=== PATIENT | male | born 1995 | race American Indian/Alaskan Native ===

== ENCOUNTER 2016-10-17 00:44 | Emergency (ER) | payer SELFPAY ==
[2016-10-17 01:00] VITALS: BP 132/92
== END 2016-10-17 01:00 | disposition left against medical advice (07) ==
LOC: ED 00:44
DX: M25.532 Pain in left wrist (principal); X58.XXXA Exposure to other specified factors, initial encounter; Y93.67 Activity, basketball; Y92.39 Other specified sports and athletic area as the place of occurrence of the external cause; Y99.8 Other external cause status; Z53.21 Procedure and treatment not carried out due to patient leaving prior to being seen by health care provider

== ENCOUNTER 2018-09-30 12:10 | Emergency (ER) | payer SELFPAY ==
[2018-09-30 12:43] VITALS: BP 127/65
[2018-09-30] MEDS ORDERED: ZITHROMAX PO ONE (13:13)
[2018-09-30] MEDS ORDERED: ROCEPHIN IM ONE (13:13)
[2018-09-30] MEDS ORDERED: XYLOCAINE 1% MPF 5 mL INFILTRATI ONE (13:13)
--- NOTE | 2018-09-30 13:14 | Emergency Department Report ---
ED Dysuria HPI - HPI Chief Complaint: Urogenital-Male Stated Complaint: PENIS/PAIN Time Seen by Provider: 09/30/18 13:16 Duration: 3 Days Severity: Moderate Symptoms: Dysuria: Yes, Frequency: No, Suprapubic Pain: No, Flank Pain: No, Fever: No, Hematuria: No, Abdominal Pain: No, Previous UTI's: No Other History: Patient is a 23-year-old -[place] male who comes in complaining of green penile discharge. He admits to numerous unprotected sexual partners. ED Review of Systems ROS: Stated complaint: PENIS/PAIN Other details as noted in HPI Comment: All other systems reviewed and negative Constitutional: denies: chills Eyes: denies: eye pain ENT: denies: throat pain Respiratory: denies: cough Cardiovascular: denies: palpitations Endocrine: denies: flushing Gastrointestinal: denies: nausea Genitourinary: as per HPI, dysuria, discharge. denies: urgency, frequency, hematuria Musculoskeletal: denies: back pain Skin: denies: rash Neurological: denies: weakness Psychiatric: denies: anxiety Hematological/Lymphatic: denies: easy bleeding ED Past Medical Hx - Past Medical History Previous Medical History?: No - Surgical History Past Surgical History?: No - Social History Smoking Status: Current Some Day Smoker Substance Use Type: Marijuana Dysuria Exam - Exam General: Vital signs noted. No distress. Alert and acting appropriately. Exam: Yes Moist Mucous Membranes, No CVA Tenderness, No Abdominal Tenderness, No Rigidity or Guarding ED Course Vital Signs 09/30/18 12:40 Temperature 97.4 F L Pulse Rate 66 Respiratory 16 Rate Blood Pressure 127/65 O2 Sat by Pulse 100 Oximetry ED Medical Decision Making - Medical Decision Making EMPIRIC TX FOR STI UA- GC PENDING - Differential Diagnosis STD Critical care attestation.: If time is entered above; I have spent that time in minutes in the direct care of this critically ill patient, excluding procedure time. ED Disposition Clinical Impression: STD (sexually transmitted disease) Disposition: DC-01 TO HOME OR SELFCARE Is pt being admited?: No Does the pt Need Aspirin: No Condition: Stable Instructions: Safe Sex (ED) Time of Disposition: 13:15
== END 2018-09-30 15:53 | disposition home or self-care (01) ==
LOC: ED 12:10
DX: A64 Unspecified sexually transmitted disease (principal); F17.200 Nicotine dependence, unspecified, uncomplicated
CPT/HCPCS: 96372; 99282; J0696

== ENCOUNTER 2019-10-31 09:07 | Emergency (ER) | payer SELFPAY ==
[2019-10-31 09:53] LABS: Basophils % (Auto) 0.3 % (0.0-1.8); Eosinophils # (Auto) 0.1 K/mm3 (0.0-0.4); Eosinophils % (Auto) 1.9 % (0.0-4.3); Hematocrit 43.7 % (35.5-45.6); Hemoglobin 14.4 gm/dl (11.8-15.2); Lymphocytes # (Auto) 1.4 K/mm3 (1.2-5.4); Lymphocytes % (Auto) 17.4 % (13.4-35.0); Mean Corpuscular HGB Conc 33 % (32-34); Mean Corpuscular Volume 89 fl (84-94); Monocytes # (Auto) 0.5 K/mm3 (0.0-0.8); Monocytes % (Auto) 6.2 % (0.0-7.3); Platelet Count 213 K/mm3 (140-440); Red Blood Count 4.93 M/mm3 (3.65-5.03); Red Cell Distribution Width 14.7 % (13.2-15.2)
[2019-10-31 10:05] LABS: Alanine Aminotransferase 10 units/L (7-56); Albumin 4.9 g/dL (3.9-5); BUN/Creatinine Ratio 10; Blood Urea Nitrogen 9 mg/dL (9-20); Calcium 9.9 mg/dL (8.4-10.2); Hemolysis Index 6
[2019-10-31] MEDS ORDERED: ONDANSETRON 4 MG ODT TAB PO ONE (11:03)
--- NOTE | 2019-10-31 11:10 | Emergency Department Report ---
ED Abdominal Pain HPI - General Chief Complaint: Abdominal Pain Stated Complaint: STOMACH PAIN Time Seen by Provider: 10/31/19 10:45 Source: patient Mode of arrival: Ambulatory Limitations: No Limitations - History of Present Illness Initial Comments: Patient is a 24-year-old F [place] male who states for the last year he is been having off and on abdominal pain. Patient states the episode occurred again last night. Patient states pains are worse at night and better in the daytime. States is a intense pain is 8 out of 10 in severity in the center abdomen with radiation up into the epigastrium and lower chest. Patient had several episodes of nausea vomiting that was nonbloody this morning. Patient denies fevers chills cough cold congestion or diarrhea at this time. - Related Data Previous Rx's Medication Instructions Recorded Last Taken Type Dicyclomine [Bentyl] 20 mg PO QID #10 tablet 10/31/19 Unknown Rx Ondansetron [Zofran Odt] 4 mg PO Q8HR #10 tab.rapdis 10/31/19 Unknown Rx Pantoprazole [Protonix] 40 mg PO QDAY #30 tablet 10/31/19 Unknown Rx Allergies Allergy/AdvReac Type Severity Reaction Status Date / Time No Known Allergies Allergy Verified 09/30/18 12:39 ED Review of Systems ROS: Stated complaint: STOMACH PAIN Other details as noted in HPI Comment: All other systems reviewed and negative ED Past Medical Hx - Past Medical History Previous Medical History?: No - Surgical History Past Surgical History?: No - Social History Smoking Status: Current Every Day Smoker Substance Use Type: Alcohol, Marijuana - Medications Home Medications: Home Medications Medication Instructions Recorded Confirmed Last Taken Type Dicyclomine [Bentyl] 20 mg PO QID #10 tablet 10/31/19 Unknown Rx Ondansetron [Zofran Odt] 4 mg PO Q8HR #10 tab.rapdis 10/31/19 Unknown Rx Pantoprazole [Protonix] 40 mg PO QDAY #30 tablet 10/31/19 Unknown Rx ED Physical Exam - General Limitations: No Limitations General appearance: alert, in no apparent distress - Head Head exam: Present: atraumatic, normocephalic - Eye Eye exam: Present: normal appearance, PERRL, EOMI - ENT ENT exam: Present: mucous membranes moist - Neck Neck exam: Present: normal inspection - Respiratory Respiratory exam: Present: normal lung sounds bilaterally. Absent: respiratory distress, wheezes, rales, rhonchi - Cardiovascular Cardiovascular Exam: Present: regular rate, normal rhythm. Absent: systolic murmur, diastolic murmur, rubs, gallop - GI/Abdominal GI/Abdominal exam: Present: soft, tenderness (Epigastric), normal bowel sounds. Absent: distended, guarding, rebound, rigid - Rectal Rectal exam: Present: deferred - Extremities Exam Extremities exam: Present: normal inspection - Back Exam Back exam: Present: normal inspection - Neurological Exam Neurological exam: Present: alert, oriented X3 - Psychiatric Psychiatric exam: Present: normal affect, normal mood - Skin Skin exam: Present: warm, dry, intact, normal color. Absent: rash ED Medical Decision Making - Lab Data Result diagrams: 10/31/19 09:18 10/31/19 09:18 - Medical Decision Making Laboratory studies were ordered from triage. Laboratory studies showed no acute abnormalities. Patient likely has GERD with an acute exacerbation. Peptic ulcer disease cannot be ruled out at this time. Patient will need outpatient fo llow-up with gastroenterology. He was given Zofran here in the emergency department for his nausea. Nausea vomiting has been controlled before the patient was discharged. Patient discharged on a PPI Critical care attestation.: If time is entered above; I have spent that time in minutes in the direct care of this critically ill patient, excluding procedure time. ED Disposition Clinical Impression: GERD (gastroesophageal reflux disease) Qualifiers: Esophagitis presence: without esophagitis Qualified Code(s): K21.9 - Gastro- esophageal reflux disease without esophagitis Acute gastritis Qualifiers: Gastritis type: unspecified gastritis Gastritis bleeding: presence of bleeding unspecified Qualified Code(s): K29.00 - Acute gastritis without bleeding Disposition: - TO HOME OR SELFCARE Is pt being admited?: No Does the pt Need Aspirin: No Condition: Stable Instructions: Diet for Ulcers and Gastritis (ED), Gastroesophageal Reflux Disease (ED) Referrals: [facility] [Provider Group] - 3-5 Days Time of Disposition: 11:11
== END 2019-10-31 11:42 | disposition home or self-care (01) ==
LOC: ED 09:07
DX: K21.9 Gastro-esophageal reflux disease without esophagitis (principal); K29.00 Acute gastritis without bleeding; F17.200 Nicotine dependence, unspecified, uncomplicated; F12.90 Cannabis use, unspecified, uncomplicated; Z72.89 Other problems related to lifestyle; Z79.899 Other long term (current) drug therapy
CPT/HCPCS: 36415; 80053; 85025; 99283; Q0162

== ENCOUNTER 2020-07-04 11:27 | Emergency (ER) | payer SELFPAY ==
[2020-07-04 11:45] VITALS: BP 143/92
[2020-07-04] MEDS ORDERED: FLUORESCEIN 1 MG STRIP OP ONE (12:18)
[2020-07-04] MEDS ORDERED: TETRACAINE 0.5% OPHTH SOLN 4ML OU ONE (12:18)
--- NOTE | 2020-07-04 13:38 | Emergency Department Report ---
ED Eye Problem HPI - General Chief complaint: Eye Problems Stated complaint: LT EYE IRRIATION Time Seen by Provider: 07/04/20 12:11 Source: patient Mode of arrival: Ambulatory Limitations: No Limitations - History of Present Illness Initial comments: This is a 24-year-old male nontoxic, well nourished in appearance, no acute signs of distress presents to the ED with c/o of left eye redness and itching x 1 day. Patient denies any trauma to the eye. Denies any foreign body sensation or floaters. Patient denies any eye pain. Patient denies any visual changes or decreased vision. Patient denies any fever, chills, nausea, vomiting, chest pain, breath, headache, stiff neck numbness or tingling. Patient denies any allergies. MD chief complaint: eye redness, other (eye itching) -: days(s) Location: left eye If Injury: none Eye Symptoms: redness, itching Severity: mild Consistency: constant Associated Symptoms: none. denies: headache, neck pain, nausea/vomiting, cough, rhinorrhea, fever, shortness of breath Treatments Prior to Arrival: none - Related Data Previous Rx's Medication Instructions Recorded Last Taken Type Dicyclomine [Bentyl] 20 mg PO QID #10 tablet 10/31/19 Unknown Rx Ondansetron [Zofran Odt] 4 mg PO Q8HR #10 tab.rapdis 10/31/19 Unknown Rx Pantoprazole [Protonix] 40 mg PO QDAY #30 tablet 10/31/19 Unknown Rx Polymyxin B Sulf/Trimethoprim 2 drops OS TID #1 drops 07/04/20 Unknown Rx [Polytrim Eye Drops] Allergies Allergy/AdvReac Type Severity Reaction Status Date / Time No Known Allergies Allergy Verified 09/30/18 12:39 ED Review of Systems ROS: Stated complaint: LT EYE IRRIATION Other details as noted in HPI Comment: All other systems reviewed and negative Constitutional: denies: chills, fever Eyes: eye discharge. denies: eye pain, vision change ENT: denies: ear pain, throat pain Respiratory: denies: cough, shortness of breath, wheezing Cardiovascular: denies: chest pain, palpitations Endocrine: no symptoms reported Gastrointestinal: denies: abdominal pain, nausea, diarrhea Genitourinary: denies: urgency, dysuria Musculoskeletal: denies: back pain, joint swelling, arthralgia Skin: denies: rash, lesions Neurological: denies: headache, weakness, paresthesias Psychiatric: denies: anxiety, depression Hematological/Lymphatic: denies: easy bleeding, easy bruising ED Past Medical Hx - Past Medical History Previous Medical History?: No - Surgical History Past Surgical History?: No - Social History Smoking Status: Current Every Day Smoker Substance Use Type: Alcohol, Marijuana - Medications Home Medications: Home Medications Medication Instructions Recorded Confirmed Last Taken Type Dicyclomine [Bentyl] 20 mg PO QID #10 tablet 10/31/19 Unknown Rx Ondansetron [Zofran Odt] 4 mg PO Q8HR #10 tab.rapdis 10/31/19 Unknown Rx Pantoprazole [Protonix] 40 mg PO QDAY #30 tablet 10/31/19 Unknown Rx Polymyxin B Sulf/Trimethoprim 2 drops OS TID #1 drops 07/04/20 Unknown Rx [Polytrim Eye Drops] ED Physical Exam - General Limitations: No Limitations General appearance: alert, in no apparent distress - Head Head exam: Present: atraumatic, normocephalic - Eye Eye exam: Present: normal appearance, PERRL, EOMI - Expanded Eye Exam Expanded Eyelids: Normal Inspection: Left Pupils: Regular, Round: Left, Reactive: Left Sclera/Conjunctival: Normal Inspection: Left Anterior chamber: Normal Inspection: Left Visual acuity (R) = 20/: 50 Visual acuity (L) = 20/: 50 With correction: No IOP measured with: Tonopen (left eye-14, 12, 14) - Neck Neck exam: Present: normal inspection, full ROM. Absent: tenderness, meningismus, lymphadenopathy - Respiratory Respiratory exam: Absent: respiratory distress - Cardiovascular Cardiovascular Exam: Present: regular rate - Extremities Exam Extremities exam: Present: full ROM - Back Exam Back exam: Present: full ROM - Neurological Exam Neurological exam: Present: alert, oriented X3, normal gait - Psychiatric Psychiatric exam: Present: normal affect, normal mood - Skin Skin exam: Present: warm, dry, intact, normal color. Absent: rash - Other Other exam information: Under Dominguez lamp, I used fluorescein and tetracaine to examine cornea for corneal abrasion or foreign body, negative for coronary abrasion or foreign body noted upon exam. ED Course Vital Signs 07/04/20 11:44 Temperature 97.8 F Pulse Rate 53 L Respiratory 18 Rate Blood Pressure 143/92 O2 Sat by Pulse 100 Oximetry - Reevaluation(s) Reevaluation #1: 07/04/20 13:38 Patient is speaking in full sentences with no signs of distress noted. ED Medical Decision Making - Medical Decision Making This is a 24-year-old male that presents with left eye uveitis. Patient is stable and was examined by me. Physical exam is unremarkable. Patient will be treated with Polytrim. Patient was instructed to follow-up with a respiratory technician doctor in 2 days or if symptoms worsen and continue return to emergency room as soon as possible. At time of discharge, the patient does not seem toxic or ill in appearance. No acute signs of distress noted. Patient agrees to discharge treatment plan of care. No further questions noted by the patient. Critical care attestation.: If time is entered above; I have spent that time in minutes in the direct care of this critically ill patient, excluding procedure time. ED Disposition Clinical Impression: Uveitis of left eye Disposition: DC-01 TO HOME OR SELFCARE Is pt being admited?: No Does the pt Need Aspirin: No Condition: Stable Additional Instructions: Follow-up with a respiratory technician doctor in 2 days or if symptoms worsen and continue return to emergency room as soon as possible. Prescriptions: Polymyxin B Sulf/Trimethoprim [Polytrim Eye Drops] 2 drops OS TID #1 drops Referrals: PRIMARY CARE, [Referring] - 3-5 Days CAPRICE ALMANZA MD [Staff Physician] - 07/06/20 Forms: Work/School Release Form(ED) Time of Disposition: 13:48
== END 2020-07-04 14:04 | disposition home or self-care (01) ==
LOC: ED 11:27
DX: H20.9 Unspecified iridocyclitis (principal); F17.200 Nicotine dependence, unspecified, uncomplicated; F12.90 Cannabis use, unspecified, uncomplicated; Z79.899 Other long term (current) drug therapy

== ENCOUNTER 2021-04-30 07:28 | Emergency (ER) | payer SELFPAY ==
[2021-04-30 07:37] VITALS: BP 144/83
--- NOTE | 2021-04-30 08:14 | Emergency Department Report ---
Chief Complaint: Urogenital-Male Stated Complaint: discharge - HPI History of Present Illness: 25-year-old male has no past history presents with penile discharge for 2 days. He denies fever abdominal pain. Medical screening exam form completed. Referred to [facility]. - Exam Vital Signs: Vital Signs 04/30/21 07:33 Temperature 98.8 F Pulse Rate 81 Respiratory 18 Rate Blood Pressure 144/83 O2 Sat by Pulse 99 Oximetry MSE screening note: Focused history and physical exam performed. Due to findings the following was ordered: ED Disposition for MSE Clinical Impression: Encounter for medical screening examination Disposition: HOME / SELF CARE / HOMELESS Is pt being admited?: No Does the pt Need Aspirin: No Condition: Stable Referrals: [facility] [Outside] - 3-5 Days
== END 2021-04-30 08:20 | disposition home or self-care (01) ==
LOC: ED 07:28
DX: Z13.9 Encounter for screening, unspecified (principal)
CPT/HCPCS: 99282